=== PATIENT | female | born 2000 | race Caucasian/White ===

== ENCOUNTER 2021-01-25 06:12 | Emergency (ER) | payer SELFPAY ==
[~2021-01-25] VITALS: Ht 162.6 cm; Wt 75.0 kg
[2021-01-25] MEDS ORDERED: MORPHINE SULFATE 4 MG/ML CPJ (NOT FOR IM USE) IV ONE (07:00)
[2021-01-25] MEDS ORDERED: KETOROLAC 30MG/ML VIAL IV ONE (09:30)
[2021-01-25] MEDS ORDERED: IBUP-2030 MT (09:30)
[2021-01-25 09:51] VITALS: BP 108/64
== END 2021-01-25 09:54 | disposition home or self-care (01) ==
LOC: ER 06:12
DX: O02.1 Missed abortion (principal); Z88.0 Allergy status to penicillin; Z88.8 Allergy status to other drugs, medicaments and biological substances
CPT/HCPCS: 36415; 76801; 76817; 84702; 96374; 96375; 99284; J1885; J2270